=== PATIENT | male | born 2005 | race African-American/Black ===

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

== ENCOUNTER 2024-05-29 03:58 | Emergency (ER) | payer OTHER, SELFPAY ==
[2024-05-29] MEDS ORDERED: Oseltamivir 75 MG CAP ONE (05:03)
[2024-05-30 12:10] LABS: SARS-CoV-2 N1 Negative; SARS-CoV-2 N2 Negative; SARS-CoV-2 RNAse P1 Positive; SARS-CoV-2 RNAse P2 Positive
== END 2024-05-29 05:15 | disposition home or self-care (01) ==
LOC: NAV ERS 03:58
DX: J10.1 Influenza due to other identified influenza virus with other respiratory manifestations (principal)
CPT/HCPCS: 87081; 87430; 87635; 87804; 99283

== ENCOUNTER 2024-08-23 06:49 | Emergency (ER) | payer SELFPAY ==
[2024-08-23] MEDS ORDERED: Ketorolac Tromethamine 30 MG (1 mL) VIAL ONE (07:52)
[2024-08-23] MEDS ORDERED: Dexamethasone 4 MG TAB ONE (07:52)
== END 2024-08-23 08:07 | disposition home or self-care (01) ==
LOC: NAV ERS 06:49
DX: B34.9 Viral infection, unspecified (principal)
CPT/HCPCS: 87081; 87428; 87430; 96372; 99283; J1885; J8540